=== PATIENT | female | born 1970 | race African-American/Black ===

== ENCOUNTER 2017-10-04 13:44 | Emergency (ER) | payer OTHER, BC ==
[~2017-10-04] VITALS: Ht 172.7 cm; Wt 102.8 kg
[~2017-10-04 13:44] MED LIST: ANTIVERT25 MG PO; FIORICET WI1 CAPSULE PO; NUMOISYN300 ML MM; VITAMIN D3 PO
[2017-10-04 13:57] VITALS: BP 148/101
== END 2017-10-04 15:06 | disposition home or self-care (01) ==
LOC: EME 13:44
DX: R06.02 Shortness of breath (principal); R05 Cough; Z53.21 Procedure and treatment not carried out due to patient leaving prior to being seen by health care provider